=== PATIENT | female | born 1995 | race Caucasian/White ===

== ENCOUNTER 2018-11-01 09:30 | Emergency (ER) | payer BC, OTHER ==
[~2018-11-01] VITALS: Ht 162.6 cm; Wt 60.3 kg
--- OUTSIDE RECORDS SUMMARY | 2018-11-01 09:34 | XMS REPORT ---
Author Author NICOLE LEON [facility] Address [address] [place] [address] Care Team Providers Care Interactive Account Manager Name Role Phone NICOLE LEON Unavailable PROBLEMS Unknown Problems ALLERGIES No Information ENCOUNTERS Encounter Location Date Diagnosis [place] [id number] [place] [phone] May, Encounter for immunization Z23 [place] [address] [place] [id number] [place] [phone] Jun, Encounter for immunization 23 [place] [address] [place] [id number] [place] [phone] May, Encounter for immunization 23 [facility] [place] [address] [place] [id number] [place] [phone] May, [facility] [place] [address] [place] [id number] [place] [phone] May, [place] [id number] [place] [phone] Jun, IMMUNIZATIONS Vaccine Route Administration Date Status FLULAVAL QUAD 0.5ML (6 MO & UP) 2018 IM Intramuscular May 18, 2018 Administered SOCIAL HISTORY Never Assessed REASON FOR VISIT Flu shot PLAN OF CARE VITAL SIGNS MEDICATIONS Unknown Medications RESULTS No Results PROCEDURES Procedure Date Ordered Result Body Site FLULAVAL QUAD 0.5ML (6 MO AND UP) 2018 May 18, 2018 SINGLE IMMUNIZATION ADMIN May 18, 2018 INSTRUCTIONS MEDICATIONS ADMINISTERED No Known Medications
--- OUTSIDE RECORDS SUMMARY | 2018-11-01 09:34 | XMS REPORT ---
Author NICOLE Mcmanus [facility] eClinicalWorks Address Unknown Phone Unavailable Care Team Providers Care Optical Lens Manufacturing Tech Name Role Phone NICOLE ELON CP Unavailable Allergies No Known Allergies Problems Problem Type Condition Code Onset Dates Condition Status Assessment Encounter for immunization Z23 Active Medications No Known Medications Procedures Procedure Coding System Code Date SINGLE IMMUNIZATION ADMIN CPT-4 83633 Jun 17, 2016 FLUARIX QUAD P-FREE 3 AND UP .50 2015 CPT-4 10378 Jun 17, 2016 Results No Known Results Immunizations Vaccine Administration Date FLUARIX QUAD P-FREE 3 AND UP .50 2015Jun 17, 2016 Summary Purpose eClinicalWorks Submission
--- OUTSIDE RECORDS SUMMARY | 2018-11-01 09:35 | XMS REPORT | Continuity of Care Document ---
Demographics Preferred Language Unknown Marital Status Unknown Jew Affiliation Unknown Race Unknown Ethnic Group Unknown Author Author [facility] Address Unknown Phone Unavailable Allergies There is no data. Medications There is no data. Problems There is no data. Procedures There is no data. Results There is no data. Encounters ACCT No. Visit Date/Time Discharge Status Pt. Type Provider Facility Loc./Unit Complaint [id number] 06/11/2012 09:19:47 RECURRING [id number] 02/01/2016 09:25:38 02/01/2016 23:59:59 CLS Outpatient
[2018-11-01 10:24] LABS: BILIRUBIN,URINE NEGATIVE (NEGATIVE); CLARITY,URINE CLEAR; COLOR,URINE YELLOW; GLUCOSE, URINE (UA) NEGATIVE (NEGATIVE); KETONES,URINE 4+ (NEGATIVE); LEUKOCYTE ESTERASE ,URINE NEGATIVE (NEGATIVE); NITRITE,URINE NEGATIVE (NEGATIVE); PH,URINE 5 (5-9); PROTEIN,URINE 1+ (NEGATIVE); UROBILINOGEN,URINE NORMAL (NORMAL)
--- NOTE | 2018-11-01 10:35 | ED General ---
General Chief Complaint: Dizziness/Syncope Stated Complaint: DIZZINESS;VOMITING Nursing Triage Note: PT CO OF DIZZINESS, AND LIGHTHEADEDNESS SINCE LAST PM. PT TAKES DIET PILLS, HAS NOT EATEN TODAY Nursing Sepsis Screen: No Definite Risk Source of Information: Patient Exam Limitations: No Limitations History of Present Illness Date Seen by Provider: Nov 01, 2018 Time Seen by Provider: 10:32 Initial Comments To ER with c/o lightheadedness since tnight. has been taking OTC herbal diet pills (Garcinia Cambogia) x1 month, symptoms just began last night. Did have nausea/vomiting x1 and palpitations. otherwise is healthy. Timing/Duration: 1-2 Days Severity: Moderate Associated Systoms: No Chest Pain, No Cough, No Diaphoresis, No Fever/Chills, No Headaches, No Loss of Appetite, No Malaise, No Nausea/Vomiting, No Rash, No Shortness of Air, No Syncope, No Weakness, No Other Allergies and Home Medications Patient Home Medication List Home Medication List Reviewed: Yes Review of Systems Review of Systems Constitutional: see HPI EENTM: see HPI Respiratory: no symptoms reported, see HPI; No cough, No dyspnea on exertion, No short of breath Cardiovascular: see HPI; No chest pain; palpitations Genitourinary: no symptoms reported Musculoskeletal: no symptoms reported Skin: no symptoms reported Psychiatric/Neurological: No Symptoms Reported Past Bkjdpcb-Hppqex-Hvzgst Hx Patient Social History Alcohol Use: Occasionally Uses Recreational Drug Use: No Smoking Status: Never a Smoker Recent Foreign Travel: No Contact w/Someone Who Travel: No Recent Infectious Disease Expo: No Recent Hopitalizations: No Past Medical History Surgeries: No Respiratory: No Cardiac: No Neurological: No Genitourinary: No Gastrointestinal: No Musculoskeletal: No Endocrine: No HEENT: No Cancer: No Psychosocial: No Integumentary: No Blood Disorders: No Physical Exam Vital Signs Vital Signs - First Documented 11/01/18 09:45 Temp 97.9 Pulse 89 Resp 18 B/P (MAP) 122/93 (103) Pulse Ox 100 Capillary Refill : Less Than 3 Seconds Height, Weight, BMI Height: 5'4.00" Weight: 133lbs. oz. 60.145795id; BMI Method:Stated General Appearance: No Apparent Distress, WD/WN Eyes: Bilateral Eye Normal Inspection, Bilateral Eye PERRL, Bilateral Eye EOMI HEENT: PERRL/EOMI, TMs Normal Neck: Full Range of Motion, Normal Inspection Respiratory: No Accessory Muscle Use, No Respiratory Distress Cardiovascular: Regular Rate, Rhythm, Normal Peripheral Pulses Gastrointestinal: Non Tender, Soft Extremity: Normal Capillary Refill, Normal Inspection Neurologic/Psychiatric: Alert, Oriented x3, No Motor/Sensory Deficits Skin: Normal Color, Warm/Dry Progress/Results/Core Measures Suspected Sepsis Recent Fever Within 48 Hours: No Infection Criteria Present: None New/Unexplained Altered Menta: No Sepsis Screen: No Definite Risk SIRS Temperature:97.9 Pulse: 89 Respiratory Rate: 18 Laboratory Tests 11/01/18 10:29: White Blood Count 5.2 Blood Pressure 122 /93 Mean: 103 Laboratory Tests 11/01/18 10:29: Creatinine 0.96, Platelet Count 223, Total Bilirubin 0.7 Results/Orders Lab Results Laboratory Tests Test 11/01/18 09:44 11/01/18 10:10 11/01/18 10:29 Range/Units Glucometer 67 L 70-110 MG/DL Urine Color YELLOW Urine Clarity CLEAR Urine pH 5 5-9 Urine Specific Barnhart 1.025 H 1.016-1.022 Urine Protein 1+ H NEGATIVE Urine Glucose (UA) NEGATIVE NEGATIVE Urine Ketones 4+ H NEGATIVE Urine Nitrite NEGATIVE NEGATIVE Urine Bilirubin NEGATIVE NEGATIVE Urine Urobilinogen NORMAL NORMAL MG/DL Urine Leukocyte Esterase NEGATIVE NEGATIVE Urine RBC (Auto) NEGATIVE NEGATIVE Urine RBC NONE /HPF Urine WBC NONE /HPF Urine Squamous Epithelial Cells 2-5 /HPF Urine Crystals NONE /LPF Urine Bacteria NEGATIVE /HPF Urine Casts NONE /LPF Urine Mucus NEGATIVE /LPF Urine Culture Indicated NO White Blood Count 5.2 4.3-11.0 10^3/uL Red Blood Count 4.16 L 4.35-5.85 10^6/uL Hemoglobin 14.3 11.5-16.0 G/DL Hematocrit 41 35-52 % Mean Corpuscular Volume 99 80-99 FL Mean Corpuscular Hemoglobin 34 25-34 PG Mean Corpuscular Hemoglobin Concent 35 32-36 G/DL Red Cell Distribution Width 12.2 10.0-14.5 % Platelet Count 223 130-400 10^3/uL Mean Platelet Volume 10.2 7.4-10.4 FL Neutrophils (%) (Auto) 83 H 42-75 % Lymphocytes (%) (Auto) 13 12-44 % Monocytes (%) (Auto) 4 0-12 % Eosinophils (%) (Auto) 0 0-10 % Basophils (%) (Auto) 0 0-10 % Neutrophils # (Auto) 4.3 1.8-7.8 X 10^3 Lymphocytes # (Auto) 0.7 L 1.0-4.0 X 10^3 Monocytes # (Auto) 0.2 0.0-1.0 X 10^3 Eosinophils # (Auto) 0.0 0.0-0.3 10^3/uL Basophils # (Auto) 0.0 0.0-0.1 10^3/uL Sodium Level 134 L 135-145 MMOL/L Potassium Level 4.6 3.6-5.0 MMOL/L Chloride Level 102 98-107 MMOL/L Carbon Dioxide Level 15 L 21-32 MMOL/L Anion Gap 17 H 5-14 MMOL/L Blood Urea Nitrogen 15 7-18 MG/DL Creatinine 0.96 0.60-1.30 MG/DL Estimat Glomerular Filtration Rate > 60 BUN/Creatinine Ratio 16 Glucose Level 75 70-105 MG/DL Calcium Level 9.7 8.5-10.1 MG/DL Corrected Calcium 8.5-10.1 MG/DL Total Bilirubin 0.7 0.1-1.0 MG/DL Aspartate Amino Transf (AST/SGOT) 27 5-34 U/L Alanine Aminotransferase (ALT/SGPT) 24 0-55 U/L Alkaline Phosphatase 42 40-136 U/L Total Protein 8.0 6.4-8.2 GM/DL Albumin 4.7 H 3.2-4.5 GM/DL My Orders Orders - KOREY COELHO APRN Ekg Tracing (11/01/18 10:31) Vital Signs/I&O 11/01/18 09:45 Temp 97.9 Pulse 89 Resp 18 B/P (MAP) 122/93 (103) Pulse Ox 100 Capillary Refill : Less Than 3 Seconds Blood Pressure Mean: 103 Departure Impression Primary Impression: Lightheadedness Disposition: 01 HOME, SELF-CARE Condition: Stable Departure-Patient Inst. Decision time for Depature: 10:35 Referrals: SHANTA FITZPATRICK MD (PCP) Primary Care Physician MARIELA DAILY MD FACP FAC VANIAS Jaswinder BRAVO MD, BASHAR J MD Patient Instructions: Syncope (Fainting) (DC) Add. Discharge Instructions: 1. Follow-up with one of the cardiologists listed. Call other offices today to make an appointment to be seen within one to 2 weeks. Return to ER for any concerns 3. All discharge instructions reviewed with patient and/or family. Voiced understanding. Work/School Note: Work Release Form Date Seen in the Emergency Department: Nov 01, 2018 Return to Work: Nov 02, 2018 KOREY COELHO APRN Nov 01, 2018 10:35
[2018-11-01 10:37] LABS: BASOPHILS % (AUTO) 0 % (0-10); EOSINOPHILS % (AUTO) 0 % (0-10); HEMATOCRIT 41 % (35-52); HEMOGLOBIN 14.3 G/DL (11.5-16.0); LYMPHOCYTES # (AUTO) 0.7 X 10^3 (1.0-4.0); LYMPHOCYTES % (AUTO) 13 % (12-44); MEAN CORPUSCULAR HEMOGLOBIN 34 PG (25-34); MEAN CORPUSCULAR HGB CONC 35 G/DL (32-36); MEAN CORPUSCULAR VOLUME 99 FL (80-99); MEAN PLATELET VOLUME 10.2 FL (7.4-10.4); MONOCYTES # (AUTO) 0.2 X 10^3 (0.0-1.0); MONOCYTES % (AUTO) 4 % (0-12); NEUTROPHILS # (AUTO) 4.3 X 10^3 (1.8-7.8); NEUTROPHILS % (AUTO) 83 % (42-75); PLATELET COUNT 223 10^3/uL (130-400); RED CELL DISTRIBUTION WIDTH 12.2 % (10.0-14.5); WHITE BLOOD COUNT 5.2 10^3/uL (4.3-11.0)
[2018-11-01 10:39] LABS: BACTERIA,URINE NEGATIVE /HPF
--- NOTE | 2018-11-01 10:39 | NUR ---
DIET PILL PT TAKING, MICHAEL TOVAR
[2018-11-01 10:55] LABS: ALANINE AMINOTRANSFERASE 24 U/L (0-55); ALBUMIN 4.7 GM/DL (3.2-4.5); ALKALINE PHOSPHATASE 42 U/L (40-136); BILIRUBIN,TOTAL 0.7 MG/DL (0.1-1.0); BUN/CREATININE RATIO 16; CALCIUM 9.7 MG/DL (8.5-10.1); CARBON DIOXIDE 15 MMOL/L (21-32); CHLORIDE 102 MMOL/L (98-107); CREATININE SERUM 0.96 MG/DL (0.60-1.30); GFR ESTIMATED > 60; GLUCOSE 75 MG/DL (70-105); POTASSIUM 4.6 MMOL/L (3.6-5.0); SODIUM 134 MMOL/L (135-145)
[2018-11-01 11:51] VITALS: BP 122/93
== END 2018-11-01 11:51 | disposition home or self-care (01) ==
LOC: EDUNIT# 09:30 → ER 09:32
DX: R42 Dizziness and giddiness (principal)
CPT/HCPCS: 36415; 80053; 81000; 82962; 84703; 85025; 93005

== ENCOUNTER → 2018-12-04 | Outpatient (CLI) | payer BC | LOC: CARD 12:36 | PROVIDERS: ATTEND Internal Medicine Cardiovascular Disease | DX: R07.89 Other chest pain (principal); R00.2 Palpitations; R06.02 Shortness of breath; I34.0 Nonrheumatic mitral (valve) insufficiency | CPT/HCPCS: 93306; 93351 ==

== ENCOUNTER 2022-02-21 11:35 | Emergency (ER) | payer SELFPAY ==
[~2022-02-21] VITALS: Ht 162 cm; Wt 77.0 kg
--- NOTE | 2022-02-21 11:55 | ED General ---
General Stated Complaint: BI LAT FEET, SWELLING, L ARM NUMBNESS,JESUS,SOB Source of Information: Patient Exam Limitations: No Limitations History of Present Illness Date Seen by Provider: Feb 21, 2022 Time Seen by Provider: 11:53 Initial Comments To ER with reports of bilateral feet swelling onset during the night last night, tachypnea, severe anxiety, shortness of breath, left arm numbness, cough. Timing/Duration: 12 Hours Severity: Moderate Associated Systoms: Cough Allergies and Home Medications Allergies Coded Allergies: No Known Drug Allergies (Unverified , 02/21/22) Patient Home Medication List Home Medication List Reviewed: Yes Review of Systems Review of Systems Constitutional: see HPI EENTM: see HPI Respiratory: cough, dyspnea on exertion, short of breath Cardiovascular: see HPI Genitourinary: no symptoms reported Musculoskeletal: no symptoms reported Skin: no symptoms reported Psychiatric/Neurological: Anxiety Hematologic/Lymphatic: No Symptoms Reported Immunological/Allergic: no symptoms reported Past Kagjggi-Owbofi-Dmanrt Hx Past Medical History Surgeries: No Respiratory: No Cardiac: No Neurological: No Genitourinary: No Gastrointestinal: No Musculoskeletal: No Endocrine: No HEENT: No Cancer: No Psychosocial: No Integumentary: No Blood Disorders: No Physical Exam Vital Signs Vital Signs - First Documented 02/21/22 11:47 Temp 36.8 Pulse 98 Resp 24 B/P (MAP) 156/111 (126) Pulse Ox 100 Capillary Refill : Height, Weight, BMI Height: 5'4.00" Weight: 133lbs. oz. 60.202532do; BMI Method:Stated General Appearance: No Apparent Distress, WD/WN, Anxious, Other (Very anxious appearing. Heart rate 120 on arrival went down to mid 90s during conversation. Very anxious.) Eyes: Bilateral Eye Normal Inspection, Bilateral Eye PERRL, Bilateral Eye EOMI HEENT: PERRL/EOMI, TMs Normal Neck: Full Range of Motion, Normal Inspection Respiratory: Normal Breath Sounds, No Accessory Muscle Use, No Respiratory Distress Cardiovascular: Normal Peripheral Pulses, Tachycardia Gastrointestinal: Normal Bowel Sounds, Non Tender, Soft Extremity: Normal Capillary Refill, Normal Inspection Neurologic/Psychiatric: Alert, Oriented x3 Skin: Normal Color, Warm/Dry Progress/Results/Core Measures Suspected Sepsis SIRS Temperature: Pulse: Respiratory Rate: Laboratory Tests 02/21/22 12:48: White Blood Count 6.4 Blood Pressure / Mean: Laboratory Tests 02/21/22 12:48: Creatinine 0.74, Platelet Count 227, Total Bilirubin 1.5H Results/Orders Lab Results Laboratory Tests Test 02/21/22 12:13 02/21/22 12:48 Range/Units SARS-CoV-2 RNA (RT-PCR) Not Detected Not Detecte White Blood Count 6.4 4.3-11.0 10^3/uL Red Blood Count 3.98 3.80-5.11 10^6/uL Hemoglobin 14.7 11.5-16.0 g/dL Hematocrit 43 35-52 % Mean Corpuscular Volume 108 H 80-99 fL Mean Corpuscular Hemoglobin 37 H 25-34 pg Mean Corpuscular Hemoglobin Concent 34 32-36 g/dL Red Cell Distribution Width 12.2 10.0-14.5 % Platelet Count 227 130-400 10^3/uL Mean Platelet Volume 9.7 9.0-12.2 fL Immature Granulocyte % (Auto) 0 % Neutrophils (%) (Auto) 76 H 42-75 % Lymphocytes (%) (Auto) 15 12-44 % Monocytes (%) (Auto) 8 0-12 % Eosinophils (%) (Auto) 1 0-10 % Basophils (%) (Auto) 0 0-10 % Neutrophils # (Auto) 4.8 1.8-7.8 10^3/uL Lymphocytes # (Auto) 1.0 1.0-4.0 10^3/uL Monocytes # (Auto) 0.5 0.0-1.0 10^3/uL Eosinophils # (Auto) 0.1 0.0-0.3 10^3/uL Basophils # (Auto) 0.0 0.0-0.1 10^3/uL Immature Granulocyte # (Auto) 0.0 0.0-0.1 10^3/uL D-Dimer < 0.27 0.00-0.49 UG/ML Sodium Level 135 135-145 MMOL/L Potassium Level 3.9 3.6-5.0 MMOL/L Chloride Level 103 98-107 MMOL/L Carbon Dioxide Level 19 L 21-32 MMOL/L Anion Gap 13 5-14 MMOL/L Blood Urea Nitrogen 7 7-18 MG/DL Creatinine 0.74 0.60-1.30 MG/DL Estimat Glomerular Filtration Rate 113 BUN/Creatinine Ratio 9 Glucose Level 86 70-105 MG/DL Calcium Level 9.3 8.5-10.1 MG/DL Corrected Calcium 9.3 8.5-10.1 MG/DL Total Bilirubin 1.5 H 0.1-1.0 MG/DL Aspartate Amino Transf (AST/SGOT) 37 H 5-34 U/L Alanine Aminotransferase (ALT/SGPT) 26 0-55 U/L Alkaline Phosphatase 44 40-136 U/L C-Reactive Protein High Sensitivity 0.54 H 0.00-0.50 MG/DL Total Protein 7.1 6.4-8.2 GM/DL Albumin 4.0 3.2-4.5 GM/DL Thyroid Stimulating Hormone (TSH) 1.53 0.35-4.94 UIU/ML Free Thyroxine 0.98 0.70-1.48 NG/DL Serum Test, Qualitative NEGATIVE NEGATIVE Smear Scan YES My Orders Orders - KOREY COELHO APRN Cbc With Automated Diff (02/21/22 11:50) Comprehensive Metabolic Panel (02/21/22 11:50) Fibrin Degradation Products (02/21/22 11:50) Ekg Tracing (02/21/22 11:50) Hs C Reactive Protein (02/21/22 11:50) Thyroid Stimulating Hormone (02/21/22 11:50) Free T4 (Free Thyroxine) (02/21/22 11:50) Hcg,Qualitative Serum (02/21/22 11:50) Ed Iv/Invasive Line Start (02/21/22 11:50) Alprazolam Tablet (Xanax Tablet) (02/21/22 12:00) Covid 19 Inhouse Test (02/21/22 11:55) Chest 1 View, Ap/Pa Only (02/21/22 13:48) Vital Signs/I&O 02/21/22 11:47 Temp 36.8 Pulse 98 Resp 24 B/P (MAP) 156/111 (126) Pulse Ox 100 Capillary Refill : Departure Communication (Admissions) 1349-feels much better and appears much less anxious. Labs are unremarkable. EKG shows sinus arrhythmia, incomplete right bundle. Impression Primary Impression: General medical exam Additional Impression: Anxiety Disposition: 01 HOME, SELF-CARE Condition: Stable Departure-Patient Inst. Decision time for Depature: 13:50 Referrals: SHANTA FITZPATRICK MD (PCP/Family) Primary Care Physician Patient Instructions: NO INSTRUCTIONS GIVEN Add. Discharge Instructions: 1. Follow-up with your primary care provider for any ongoing symptoms. Return to ER for any concerns. Work/School Note: Work Release Form Date Seen in the Emergency Department: Feb 21, 2022 Return to Work: Feb 22, 2022 KOREY COELHO APRN Feb 21, 2022 11:55
[2022-02-21] MEDS ORDERED: ALPRAZolam 0.5 MG (XANAX) TAB PO SCH (12:00)
[2022-02-21 12:54] LABS: BASOPHILS % (AUTO) 0 % (0-10); EOSINOPHILS # (AUTO) 0.1 10^3/uL (0.0-0.3); EOSINOPHILS % (AUTO) 1 % (0-10); HEMATOCRIT 43 % (35-52); HEMOGLOBIN 14.7 g/dL (11.5-16.0); LYMPHOCYTES % (AUTO) 15 % (12-44); MEAN CORPUSCULAR HEMOGLOBIN 37 pg (25-34); MEAN CORPUSCULAR HGB CONC 34 g/dL (32-36); MEAN CORPUSCULAR VOLUME 108 fL (80-99); MEAN PLATELET VOLUME 9.7 fL (9.0-12.2); MONOCYTES # (AUTO) 0.5 10^3/uL (0.0-1.0); MONOCYTES % (AUTO) 8 % (0-12); NEUTROPHILS # (AUTO) 4.8 10^3/uL (1.8-7.8); NEUTROPHILS % (AUTO) 76 % (42-75); PLATELET COUNT 227 10^3/uL (130-400); WHITE BLOOD COUNT 6.4 10^3/uL (4.3-11.0)
[2022-02-21 13:02] LABS: SMEAR SCAN COMMENT YES
[2022-02-21 13:12] LABS: POTASSIUM 3.9 MMOL/L (3.6-5.0)
[2022-02-21 13:13] LABS: CALCIUM 9.3 MG/DL (8.5-10.1)
[2022-02-21 13:14] LABS: TOTAL PROTEIN 7.1 GM/DL (6.4-8.2)
[2022-02-21 13:16] LABS: BILIRUBIN,TOTAL 1.5 MG/DL (0.1-1.0)
[2022-02-21 13:18] LABS: CREATININE SERUM 0.74 MG/DL (0.60-1.30)
[2022-02-21 13:41] LABS: FREE T4 (FREE THYROXINE) 0.98 NG/DL (0.70-1.48)
--- NOTE | 2022-02-21 14:09 | Diagnostic Imaging Report ---
INDICATION: Dyspnea. TIME OF EXAM: 2:01 p.m. No prior studies are available for comparison. FINDINGS: The heart size is normal. The pulmonary vascularity is unremarkable. The lungs are clear. No infiltrate, effusion or pneumothorax is detected. IMPRESSION: No acute cardiopulmonary process is detected. Dictated by: Dictated on workstation # [id number]
[2022-02-21 14:13] VITALS: BP 125/88
== END 2022-02-21 14:13 | disposition home or self-care (01) ==
LOC: EDUNIT# 11:35 → ER 11:37
DX: F41.9 Anxiety disorder, unspecified (principal); I49.8 Other specified cardiac arrhythmias; I45.10 Unspecified right bundle-branch block; Z20.822 Contact with and (suspected) exposure to COVID-19
CPT/HCPCS: 36415; 71045; 80053; 84439; 84443; 84703; 85025; 85379; 86141; 87636; 93005

== ENCOUNTER 2022-03-08 10:24 | Emergency (ER) | payer SELFPAY ==
[~2022-03-08] VITALS: Ht 162.5 cm; Wt 77.1 kg
[2022-03-08] MEDS ORDERED: hydrOXYzine (VISTARIL/ATARAX) 25 MG capsule/tablet PO ONE (10:45)
[2022-03-08] MEDS ORDERED: ASPIRIN 81 MG CHEW (CHILDREN'S ASA) PO ONE (10:45)
--- NOTE | 2022-03-08 10:45 | ED Chest Pain ---
General Chief Complaint: Chest Pain Stated Complaint: CHEST TIGHTNESS - SOA - LEFT ARM PAIN Source: patient, family (mother) Exam Limitations: no limitations History of Present Illness Date Seen by Provider: Mar 08, 2022 Time Seen by Provider: 10:32 Initial Comments Patient is a 27-year-old female who presents to the emergency department today with a chief complaint of chest tightness, shortness of breath, mild nausea and left arm pain. Patient states that she woke up at 430 this morning with the above-stated symptoms. She states she was able to go back to sleep and woke up at about 930 this morning with the exact same symptoms. She rates the discomfort in her chest at a "5 or 6". She states she has a little left upper arm discomfort with it. She is not a smoker. She does not take any daily medications. No first-degree relatives with a history of coronary artery disease in their 20s. She does drink alcohol daily. She has been under increased stress in the last several weeks due to a significant other with recent hospitalization for Guillain-Coates syndrome. She states she went to bed normally last night she slept fairly well. She has had a prior ER visit in the last month to 6 weeks for similar symptoms with a work-up that was unremarkable. Patient was told that they believed her symptoms were due to "stress". Patient does admit to increased stress recently. No recent illnesses such as fevers, chills, cough or congestion. She recently finished her menstrual cycle. She is COVID vaccinated. All other review of systems reviewed and negative except as stated Timing/Duration: 4-6 hours, constant Severity/Quality: moderate, tightness Location: central Radiation: shoulders (left arm) Activities at Onset: sleep Prior CP/Workup: other (previous ED visit for CP recently) ASA po FIRE PREVENTION CAPTAIN: No NTG SL FIRE PREVENTION CAPTAIN: No Associated Symptoms: nausea/vomiting, shortness of breath Allergies and Home Medications Allergies Coded Allergies: No Known Drug Allergies (Unverified , 02/21/22) Patient Home Medication List Home Medication List Reviewed: Yes Review of Systems Review of Systems Constitutional: see HPI EENTM: No Symptoms Reported Respiratory: Shortness of Air Cardiovascular: Chest Pain Gastrointestinal: Nausea Genitourinary: No Symptoms Reported Musculoskeletal: no symptoms reported Skin: no symptoms reported Psychiatric/Neurological: Paresthesia (bilateral feet), Other (increased stress recently) All Other Systems Reviewed Negative Unless Noted: Yes Past Dobrslj-Fwmzfb-Qmjqhw Hx Patient Social History Tobacco Use?: No Substance use?: No Alcohol Use?: Yes Alcohol type: Beer, Hard Liquor Alcohol Frequency: Daily Pt feels they are or have been: Unable to obtain Immunizations Up To Date Influenza Vaccine Up-to-Date: Yes; Up-to-Date Past Medical History Surgery/Hospitalization HX: HX ANXIETY Surgeries: No Respiratory: No Cardiac: No Neurological: No Genitourinary: No Gastrointestinal: No Musculoskeletal: No Endocrine: No HEENT: No Cancer: No Psychosocial: No Integumentary: No Blood Disorders: No Physical Exam Vital Signs Vital Signs - First Documented 03/08/22 10:29 Temp 35.8 Pulse 94 Resp 20 B/P (MAP) 134/99 (111) Pulse Ox 98 O2 Delivery Room Air Capillary Refill : Height, Weight, BMI Height: 5'4.00" Weight: 133lbs. oz. 60.027469et; 29.00 BMI Method:Stated General Appearance: WD/WN, Anxious HEENT: PERRL/EOMI, Pharynx Normal Neck: Normal Inspection Respiratory: Lungs Clear, Normal Breath Sounds, No Accessory Muscle Use, No Respiratory Distress Cardiovascular: Regular Rate, Rhythm, Normal Peripheral Pulses Gastrointestinal: Non Tender, Soft Extremity: Normal Capillary Refill, Normal Inspection, Normal Range of Motion, Non Tender, No Calf Tenderness, No Pedal Edema Neurologic/Psychiatric: Alert, Oriented x3, No Motor/Sensory Deficits, bacteriologist industrial II- XII Norm as Tested, Other (very anxious and tremulous) Skin: Normal Color, Warm/Dry Progress/Results/Core Measures Results/Orders Lab Results Laboratory Tests Test 03/08/22 10:52 Range/Units White Blood Count 7.4 4.3-11.0 10^3/uL Red Blood Count 3.94 3.80-5.11 10^6/uL Hemoglobin 14.2 11.5-16.0 g/dL Hematocrit 41 35-52 % Mean Corpuscular Volume 105 H 80-99 fL Mean Corpuscular Hemoglobin 36 H 25-34 pg Mean Corpuscular Hemoglobin Concent 35 32-36 g/dL Red Cell Distribution Width 11.9 10.0-14.5 % Platelet Count 232 130-400 10^3/uL Mean Platelet Volume 9.9 9.0-12.2 fL Immature Granulocyte % (Auto) 0 % Neutrophils (%) (Auto) 74 42-75 % Lymphocytes (%) (Auto) 18 12-44 % Monocytes (%) (Auto) 7 0-12 % Eosinophils (%) (Auto) 1 0-10 % Basophils (%) (Auto) 0 0-10 % Neutrophils # (Auto) 5.5 1.8-7.8 10^3/uL Lymphocytes # (Auto) 1.4 1.0-4.0 10^3/uL Monocytes # (Auto) 0.5 0.0-1.0 10^3/uL Eosinophils # (Auto) 0.1 0.0-0.3 10^3/uL Basophils # (Auto) 0.0 0.0-0.1 10^3/uL Immature Granulocyte # (Auto) 0.0 0.0-0.1 10^3/uL Prothrombin Time 13.5 12.2-14.7 SEC INR Comment 1.0 0.8-1.4 Activated Partial Thromboplast Time 31 24-35 SEC Sodium Level 136 135-145 MMOL/L Potassium Level 3.9 3.6-5.0 MMOL/L Chloride Level 102 98-107 MMOL/L Carbon Dioxide Level 20 L 21-32 MMOL/L Anion Gap 14 5-14 MMOL/L Blood Urea Nitrogen 9 7-18 MG/DL Creatinine 0.77 0.60-1.30 MG/DL Estimat Glomerular Filtration Rate 107 BUN/Creatinine Ratio 12 Glucose Level 95 70-105 MG/DL Calcium Level 9.1 8.5-10.1 MG/DL Corrected Calcium 9.1 8.5-10.1 MG/DL Magnesium Level 1.3 L 1.6-2.4 MG/DL Total Bilirubin 1.4 H 0.1-1.0 MG/DL Aspartate Amino Transf (AST/SGOT) 89 H 5-34 U/L Alanine Aminotransferase (ALT/SGPT) 45 0-55 U/L Alkaline Phosphatase 60 40-136 U/L Myoglobin 17.3 10.0-92.0 NG/ML Troponin I < 0.028 <0.028 NG/ML Total Protein 7.0 6.4-8.2 GM/DL Albumin 4.0 3.2-4.5 GM/DL Serum Test, Qualitative NEGATIVE NEGATIVE My Orders Orders - RENE RUTLEDGE MD Ekg Tracing (03/08/22 10:27) Cbc With Automated Diff (03/08/22 10:40) Magnesium (03/08/22 10:40) Chest 1 View, Ap/Pa Only (03/08/22 10:40) Comprehensive Metabolic Panel (03/08/22 10:40) Myoglobin Serum (03/08/22 10:40) Protime With Inr (03/08/22 10:40) Partial Thromboplastin Time (03/08/22 10:40) O2 (03/08/22 10:40) Monitor-Rhythm Ecg Trace Only (03/08/22 10:40) Lipid Panel (03/09/22 06:00) Ed Iv/Invasive Line Start (03/08/22 10:40) Troponin I Chuckie (03/08/22 10:40) Hcg,Qualitative Serum (03/08/22 10:40) Aspirin Chewable Tablet (Baby Aspirin Ch (03/08/22 10:45) Hydroxyzine Cap/Tab (Vistaril) (03/08/22 10:45) Medications Given in ED Current Medications Medications Dose Ordered Sig/Roxanne Route Start Time Stop Time Status Last Admin Dose Admin Aspirin 324 mg ONCE ONCE PO 03/08/22 10:45 03/08/22 10:46 DC 03/08/22 10:56 324 MG Hydroxyzine Pamoate 25 mg ONCE ONCE PO 03/08/22 10:45 03/08/22 10:46 DC 03/08/22 10:56 25 MG Vital Signs/I&O 03/08/22 10:29 Temp 35.8 Pulse 94 Resp 20 B/P (MAP) 134/99 (111) Pulse Ox 98 O2 Delivery Room Air Progress Progress Note : Time: 11:48 Progress Note Labs reviewed, reassuring. Liver functions are minimally elevated likely consistent with her alcohol use. I had a long discussion with her regarding ongoing alcohol use. I encouraged her to really think about how much she is drinking and why she is drinking. I encouraged her to follow-up with a primary care doctor. I believe her chest pain this morning is related to anxiety. She feels good, asymptomatic at this time. I advised that I would give her a prescription for some hydroxyzine when her symptoms are at their worst. I recommended that she talk to a family doctor about her anxiety as well. She is comfortable with plan of care. All questions are sought and answered Initial ECG Impression Date: Mar 08, 2022 Initial ECG Impression Time: 10:43 Initial ECG Rate: 80 Initial ECG Rhythm: Normal Sinus Initial ECG Intervals VT interval 119 QRS 101 QTC 400 Comment No ectopy is noted, right bundle branch block, nonspecific ST-T wave change with inverted T in lead III and flattening in aVF. Inverted T waves in V3. No ST segment elevation or depression. Diagnostic Imaging Diagonstic Imaging: Xray Plain Films/CT/US/NM/MRI: chest Comments [facility] [place], [place] NAME: EVA JEAN [facility] REC#: [id number] PT STATUS: REG ER : 1995 PHYSICIAN: RENE RUTLEDGE MD ADMIT DATE: 03/08/22/ER Draft Date of Exam:03/08/22 CHEST 1 VIEW, AP/PA ONLY INDICATION: Chest pain Frontal chest obtained at 10:39 a.m. and compared to 02/21/2022. Heart and mediastinal silhouette are normal in appearance. Lungs are clear. There is no pneumothorax or pleural fluid. IMPRESSION: Negative chest. Dictated on workstation # [id number] Dict: 03/08/22 1052 Trans: 03/08/22 1055 CV [id number] Interpreted by: MAGALIE MATA MD Electronically signed by: Departure Impression Primary Impression: Atypical chest pain Additional Impressions: Anxiety Alcohol use Disposition: 01 HOME, SELF-CARE Condition: Improved Departure-Patient Inst. Decision time for Depature: 11:51 Referrals: SHANTA FITZPATRICK MD (PCP/Family) Primary Care Physician Patient Instructions: Chest Pain That Is Not Caused by the Heart (DC), Effects of Alcohol on Your Health Add. Discharge Instructions: Drink plenty of water to stay well-hydrated. Use the hydroxyzine 1 every 6 hours as needed for moderate to severe anxiety/panic. Try and cut back on your alcohol use. Follow-up with your family doctor to discuss anxiety/panic as well as to monitor your liver functions. Return to the emergency department for any new, concerning or emergent complaints. Scripts Hydroxyzine HCl (Hydroxyzine HCl) 25 Mg Tablet 25 MG PO Q6H PRN for anxiety, #20 TAB Prov: RENE RUTLEDGE MD 03/08/22 RENE RUTLEDGE MD Mar 08, 2022 10:44
--- NOTE | 2022-03-08 10:55 | Diagnostic Imaging Report ---
INDICATION: Chest pain Frontal chest obtained at 10:39 a.m. and compared to 02/21/2022. Heart and mediastinal silhouette are normal in appearance. Lungs are clear. There is no pneumothorax or pleural fluid. IMPRESSION: Negative chest. Dictated by: Dictated on workstation # [id number]
[2022-03-08 11:09] LABS: BASOPHILS % (AUTO) 0 % (0-10); EOSINOPHILS # (AUTO) 0.1 10^3/uL (0.0-0.3); EOSINOPHILS % (AUTO) 1 % (0-10); HEMATOCRIT 41 % (35-52); HEMOGLOBIN 14.2 g/dL (11.5-16.0); LYMPHOCYTES # (AUTO) 1.4 10^3/uL (1.0-4.0); LYMPHOCYTES % (AUTO) 18 % (12-44); MEAN CORPUSCULAR HEMOGLOBIN 36 pg (25-34); MEAN CORPUSCULAR HGB CONC 35 g/dL (32-36); MEAN CORPUSCULAR VOLUME 105 fL (80-99); MEAN PLATELET VOLUME 9.9 fL (9.0-12.2); MONOCYTES # (AUTO) 0.5 10^3/uL (0.0-1.0); MONOCYTES % (AUTO) 7 % (0-12); NEUTROPHILS # (AUTO) 5.5 10^3/uL (1.8-7.8); NEUTROPHILS % (AUTO) 74 % (42-75); PLATELET COUNT 232 10^3/uL (130-400); WHITE BLOOD COUNT 7.4 10^3/uL (4.3-11.0)
[2022-03-08 11:23] LABS: PROTHROMBIN TIME PATIENT 13.5 SEC (12.2-14.7)
[2022-03-08 11:25] LABS: BILIRUBIN,TOTAL 1.4 MG/DL (0.1-1.0); CALCIUM 9.1 MG/DL (8.5-10.1); CREATININE SERUM 0.77 MG/DL (0.60-1.30); MAGNESIUM 1.3 MG/DL (1.6-2.4); POTASSIUM 3.9 MMOL/L (3.6-5.0)
[2022-03-08] MEDS ORDERED: HYDR-700 PO (11:53)
[2022-03-08 12:22] VITALS: BP 128/92
== END 2022-03-08 12:22 | disposition home or self-care (01) ==
LOC: EDUNIT# 10:24 → ER 10:26
DX: R07.89 Other chest pain (principal); F41.9 Anxiety disorder, unspecified; F10.10 Alcohol abuse, uncomplicated
CPT/HCPCS: 36415; 71045; 80053; 83735; 83874; 84484; 84703; 85025; 85610; 85730; 93005; 93041

== ENCOUNTER → 2023-02-15 | Outpatient (CLI) | payer SELFPAY ==
[~2023-02-15] MED LIST: HYDR-700 PO
--- NOTE | 2023-02-15 13:53 | Diagnostic Imaging Report ---
Indication: Palpable lump in the upper outer left breast. No prior studies are available for comparison. Unilateral left 2-D and 3-D diagnostic mammography was performed with with CAD. The current study was also evaluated with a Computer Aided Detection (CAD) system. Left breast is heterogeneously dense, limiting the sensitivity of mammography. No mass or malignant-appearing microcalcifications are identified. Specifically, no underlying abnormality is seen at the area of palpable abnormality in the upper left breast. Left axilla is unremarkable. IMPRESSION: BI-RADS Category 0 No mammographic features suspicious for malignancy are identified. Even so, directed sonographic interrogation of the area of palpable abnormality in the left breast is recommended and will be performed today. ACR BI-RADS Category 0: Incomplete. (Needs additional imaging evaluation). Result letter will be mailed to the patient. Note: At least 10% of breast cancer is not imaged by mammography. Dictated by: Dictated on workstation # [id number]
--- NOTE | 2023-02-15 14:41 | Diagnostic Imaging Report ---
INDICATION: Left breast lump. COMPARISON: Correlation is made with the diagnostic mammogram from earlier this same day. FINDINGS: Sonographic interrogation at the area of lump in the upper outer left breast was performed. No sonographic abnormality is seen. No solid or cystic mass is identified. IMPRESSION: No sonographic abnormality is detected. ACR BI-RADS Category 1: Negative. Dictated by: Dictated on workstation # [id number]
== END ==
LOC: RAD 12:57
PROVIDERS: ATTEND Family Medicine
DX: N63.11 Unspecified lump in the right breast, upper outer quadrant (principal)
CPT/HCPCS: 76642; 77065; G0279